=== PATIENT | female | born 1995 | race Caucasian/White ===

== ENCOUNTER 2017-12-06 17:50 | Emergency (ER) | payer OTHER ==
[~2017-12-06] VITALS: Ht 165.1 cm; Wt 77.3 kg
[2017-12-06] MEDS ORDERED: CABE0.5T2 PO (18:07)
[2017-12-06] MEDS ORDERED: IBUPROFEN 800 MG TABLET PO ONE (19:15)
[2017-12-06] MEDS ORDERED: POVIDONE-IODINE 10% 15 ML SOLUTION UD TP ONE (19:15)
[2017-12-06] MEDS ORDERED: AMOX TR/POT CLAV 875 MG/125 MG TABLET PO ONE (19:15)
[2017-12-06 20:32] VITALS: BP 123/77
== END 2017-12-06 20:45 | disposition home or self-care (01) ==
LOC: EMS 17:54
DX: S61.230A Puncture wound without foreign body of right index finger without damage to nail, initial encounter (principal); W54.0XXA Bitten by dog, initial encounter; Y93.89 Activity, other specified; Y92.89 Other specified places as the place of occurrence of the external cause; Y99.8 Other external cause status
CPT/HCPCS: 99284